=== PATIENT | female | born 1960 | race Caucasian/White ===

== ENCOUNTER → 2024-06-14 | Outpatient (REF) | payer OTHER ==
[~2024-06-14] MED LIST: DIPHENHYDRAMINE HCL 25 MG CAP ONE; IOPAMIDOL 370 MG/ML 100 ML INFUS..BTL INJ ONE; METOPROLOL TARTRATE INJ 1 MG/ML VIAL ONE; NITROGLYCERIN 0.4 MG SUBL ONE; SODIUM CHLORIDE 0.9% 100 ML ONE
[2024-06-14 10:18] LABS: CREATININE, SERUM 0.87 mg/dL (0.57-1.11)
== END ==
LOC: CT 09:40
PROVIDERS: ATTEND Internal Medicine Interventional Cardiology
DX: I20.9 Angina pectoris, unspecified (principal)
CPT/HCPCS: 36415; 75574; 75580; 82565; 84520; J7050; Q9967